=== PATIENT | male | born 1995 | race Caucasian/White ===

== ENCOUNTER 2018-05-12 12:46 | Emergency (ER) | payer MEDICAID ==
[~2018-05-12] VITALS: Ht 180.3 cm; Wt 103.9 kg
[2018-05-12 13:24] VITALS: BP 140/73; Ht 180.3 cm; Wt 103.9 kg
== END 2018-05-12 15:38 | disposition home or self-care (01) ==
LOC: ED 12:46
DX: R51 Headache (principal); Z56.3 Stressful work schedule

== ENCOUNTER 2019-08-25 20:10 | Emergency (ER) | payer OTHER ==
[~2019-08-25] VITALS: Ht 180.3 cm; Wt 104.3 kg
[2019-08-25 20:15] VITALS: Ht 180.3 cm; Wt 104.3 kg
[2019-08-25 21:16] VITALS: BP 132/88
== END 2019-08-25 21:16 | disposition other institution (70) ==
LOC: ED 20:10
DX: Z02.89 Encounter for other administrative examinations (principal)